=== PATIENT | female | born 1980 | race Caucasian/White ===

== ENCOUNTER → 2017-04-03 | Outpatient (CLI) | payer OTHER ==
[~2017-04-03] VITALS: Ht 162.6 cm; Wt 90.5 kg
[~2017-04-03] MED LIST: BENZOCAINE 20% ORAL SPR 60 ML CAN OROPHARYNG ONE; LIDOCAINE HCL 2% JELLY 5 ML SYRINGE TOPICAL ONE; PANT40TA3 PO; ZANT150T2 PO
[2017-04-03 07:06] VITALS: BP 99/66; PULSE 58; RESP 16; TEMP 97.9; O2SAT 100
== END ==
LOC: HEND 06:47
PROVIDERS: ATTEND Hospitalist
DX: K21.9 Gastro-esophageal reflux disease without esophagitis (principal)
CPT/HCPCS: 91010

== ENCOUNTER → 2017-05-26 | Outpatient (CLI) | payer OTHER ==
[~2017-05-26] MED LIST changes: -BENZOCAINE 20% ORAL SPR 60 ML CAN OROPHARYNG ONE; -LIDOCAINE HCL 2% JELLY 5 ML SYRINGE TOPICAL ONE
--- NOTE | 2017-05-26 08:18 | EKG ---
Date Performed: 05/26/2017 Time Performed: 07:54:36 PTAGE: 37 years EKG: Sinus rhythm with PAC(s) and PVCs. Borderline ECG Compared to prior electrocardiogram, Premature atrial and ventr icular contractions are present. PREVIOUS TRACING : 11/30/2015 15.59 DOCTOR: Jose Arambula Interpretating Date/Time 05/26/2017 08:16:24
--- NOTE | 2017-05-26 08:48 | RADRPT ---
EXAM DATE/TIME: 05/26/2017 08:16 [facility] COMPARISON: No previous studies available for comparison. INDICATIONS : Evaluate for pneumonia, pneumothorax, or communicable disease. Pre-op for gastric bypass on May. MEDICAL HISTORY : None. SURGICAL HISTORY : None. ENCOUNTER: Initial ACUITY: 1 day PAIN SCORE: 0/10 LOCATION: Bilateral chest FINDINGS: PA and lateral views of the chest demonstrate the lungs to be symmetrically aerated without evidence of mass, infiltrate or effusion. The cardiomediastinal contours are unremarkable. Osseous structure s are intact. CONCLUSION: No acute disease. Ruddy Sherwood MD on May 26, 2017 at 8:46 Board Certified Radiologist. This report was verified electronically.
== END ==
LOC: HCAV 07:44
PROVIDERS: ATTEND Surgery
DX: Z01.818 Encounter for other preprocedural examination (principal); I49.3 Ventricular premature depolarization; I49.1 Atrial premature depolarization
CPT/HCPCS: 71020; 93005

== ENCOUNTER 2017-06-13 11:12 | Inpatient (IN) | payer OTHER ==
[~2017-06-13] VITALS: Ht 162.6 cm; Wt 92.4 kg
[~2017-06-13 11:12] MED LIST changes: +CHOL1CAP24 PO; +CYAN1TAB24 PO; +MULTTAB67 PO
[2017-06-14] MEDS ORDERED: APREPITANT 40 MG CAP PO SCH (05:45)
[2017-06-14] MEDS ORDERED: SCOPOLAMINE 1.5 MG PATCH T-DERMAL SCH (05:45)
[2017-06-14] MEDS ORDERED: CHLORHEXIDINE GLUCONATE 2 % 1 PACK (2 CLOTHS) TOPICAL PRN (05:45)
[2017-06-14] MEDS ORDERED: SODIUM CHLORID 0.9% 500 ML IV PRN (05:45)
[2017-06-14] MEDS ORDERED: ACETAMINOPHEN 1000 MG/100 ML VIAL IV SCH (05:45)
[2017-06-14] MEDS ORDERED: INSULIN HUMAN REGULAR 1,000 UNITS/10 ML VIAL SQ PRN (05:45)
[2017-06-14] MEDS ORDERED: METOPROLOL TARTRATE 25 MG TAB PO PRN (05:45)
[2017-06-14] MEDS ORDERED: POVIDONE IODINE 5% (ANTISEPSIS KIT) 4 APPLICATIONS EACH NARE PRN (05:45)
[2017-06-14] MEDS ORDERED: ONDANSETRON HCL 4 MG/2 ML VIAL IV PUSH SCH (05:45)
[2017-06-14] MEDS ORDERED: LACTATED RINGER'S 1000 ML IV PRN (05:45)
[2017-06-14 06:10] VITALS: BP 121/71; PULSE 56; RESP 20; TEMP 98.1; O2SAT 100
[2017-06-14] MEDS ORDERED: GLYCOPYRROLATE 0.4 MG/2 ML VIAL ONE (07:02)
[2017-06-14] MEDS ORDERED: MIDAZOLAM HCL 2 MG/2 ML VIAL ONE (07:02)
[2017-06-14] MEDS ORDERED: DEXAMETHASONE SOD PHOS 4 MG/ML VIAL ONE (07:02)
[2017-06-14] MEDS ORDERED: fentaNYL CITRATE 250 MCG/5 ML AMP ONE (07:02)
[2017-06-14] MEDS ORDERED: FAMOTIDINE 20 MG/2 ML VIAL ONE (07:02)
[2017-06-14] MEDS ORDERED: ceFAZolin 2 GM PREMIX 50 ML ONE (07:12)
[2017-06-14] MEDS ORDERED: BUPIVACAINE/EPINEPHRINE 0.5% PF 10 ML VIAL ONE (07:12)
[2017-06-14] MEDS ORDERED: metroNIDAZOLE 500 MG INJ 100 ML IV ONE (07:22)
[2017-06-14] MEDS ORDERED: BUPIVACAINE/EPINEPHRINE 0.5% PF 10 ML VIAL INFIL ONE (08:08)
[2017-06-14] MEDS ORDERED: METHYLENE BLUE 100 MG/10 ML VIAL NG ONE (08:25)
[2017-06-14] MEDS: D5-1/2 NS + KCL 20 MEQ INJ 1,000 ML IV SCH ×4 (09:40→23:00)
[2017-06-14] MEDS ORDERED: ENALAPRILAT 1.25 MG/ML VIAL IV PUSH PRN (09:45)
[2017-06-14] MEDS ORDERED: SODIUM CHLORIDE 0.9% FLUSH 10 ML FLUSH IV FLUSH PRN (09:45)
[2017-06-14] MEDS ORDERED: diphenhydrAMINE HCL ELIXIR 12.5 MG/5 ML CUP PO PRN (09:45)
[2017-06-14] MEDS ORDERED: MORPHINE SULFATE 30 MG/30 ML PCA IV SCH (09:45)
[2017-06-14] MEDS ORDERED: ONDANSETRON HCL 4 MG/2 ML VIAL IV PRN (09:45)
[2017-06-14] MEDS ORDERED: diphenhydrAMINE HCL 50 MG/ML VIAL IV PRN (09:45)
[2017-06-14] MEDS ORDERED: ACETAMINOPHEN 325MG/HYDROcodone 7.5MG/15ML UDC PO PRN ×2 (09:45)
[2017-06-14] MEDS ORDERED: Post-op Orders (for Pharmacy) MISC OTHER ONE (09:45)
[2017-06-14] MEDS ORDERED: NALOXONE HCL 0.4 MG/ML AMP IV PRN (09:45)
[2017-06-14] MEDS ORDERED: *morphine SULFATE 8 MG/ML PERIprocedure ONLY ONE (10:08)
[2017-06-14] MEDS: METOCLOPRAMIDE HCL 10 MG/2 ML VIAL IV PUSH SCH ×2 (10:30→17:04)
[2017-06-14] MEDS ORDERED: DO NOT ADM ANY ANTICOAGULANT DRUGS PRN (11:15)
[2017-06-14] MEDS ORDERED: LACTATED RINGER'S 1000 ML INJ 1,000 ML IV ONE (12:00)
[2017-06-14] MEDS ORDERED: NEOSTIGMINE 3 MG/3 ML SYR IV ONE (12:00)
[2017-06-14] MEDS ORDERED: ePHEDrine/NS 25 MG/5 ML SYR IV ONE (12:00)
[2017-06-14] MEDS: RESP: ALBUTEROL 2.5 MG/3 ML NEB (SCH) INH ×2 (12:00→19:59)
[2017-06-14] MEDS ORDERED: PROPOFOL 200 MG/20 ML AMP IV ONE (12:00)
[2017-06-14] MEDS: ENOXAPARIN SODIUM 40 MG/0.4 ML SYRINGE SQ SCH (14:00)
[2017-06-14] MEDS: PCA - TOTAL MG MORPHINE DELIVERED PER SHIFT SCH ×2 (14:00→22:00)
--- NOTE | 2017-06-14 15:25 | MP ---
cc: SHERRIE BEAN DATE OF SURGERY: 06/14/2017 DATE OF : 1980 PREOPERATIVE DIAGNOSIS 1. Severe reflux unresponsive to medical management. 2. Obesity with a BMI of 35. POSTOPERATIVE DIAGNOSIS 1. Severe reflux unresponsive to medical management. 2. Obesity with a BMI of 35. PROCEDURE Laparoscopic Miale-en-Y gastric bypass. SURGEON Sherrie Bean BOX OFFICE MANAGER SURGEON Tim Boyer. Dr. Boyer's assistance was necessary for the procedure due to the complexity of the procedure. Dr. Boyer was necessary for exposure and manipulation during the procedure. Dr. Boyer assisted for the entire procedure. The assistant general manager provided by [employer] was utilized for camera operation. ANESTHESIA General endotracheal. ESTIMATED BLOOD LOSS Less than 10 cc. INDICATION This is a patient who had a laparoscopic vertical sleeve gastrectomy in the past. She was doing well, however, began experiencing reflux. She has been on multiple medical treatments for reflux, all unsuccessful. As a result she was brought in for conversion to Maile-en-Y gastric bypass to treat her reflux. FINDINGS Adhesions to the left lobe of the liver. Fatty liver. SPECIMENS None. COMPLICATIONS None. DETAILS OF PROCEDURE The patient was brought to the operating room and placed on the operating table in supine position. Bilateral sequential inflation device was placed on the lower extremities. General anesthesia was instituted. Antibiotics were initiated. The abdomen was prepped and draped sterilely. A point 18 cm distal to the xiphoid in the midline was anesthetized with 0.25% Marcaine with epinephrine. A skin incision was made. A 5 mm OptiView port was placed and under direct vision a pneumoperitoneum was created. Under direct vision a 5 mm left upper quadrant, 12 mm left upper quadrant, 12 mm right upper quadrant and 5 mm right upper quadrant port was placed. Prior to placement of all ports the skin and peritoneum were anesthetized with 0.25% Marcaine with epinephrine. The patient was placed in reverse Trendelenburg position, left side up. A Noreen-Flex retractor was placed and the left lobe of the liver was retracted. There were adhesions to the left lobe of the liver which were taken down sharply. The omentum along the staple line of the patient's sleeve gastrectomy was taken down using the Harmonic scalpel. Attention was then focused on the lesser curve. A distance 5 cm was identified. The lesser sac was entered in this region using blunt dissection. The stomach was then partitioned 5 cm distal to the GE junction using an [place] Flex stapler gold load. Attention was then focused on the lower abdomen. The omentum was lifted up and split down the middle to create a path for the Maile limb. The ligament of Treitz was identified. A point 40 cm distal was identified. The small bowel was divided in this region using an [place] Flex stapler white load reinforced with SeamGuard. The distal segment was brought up for a distance of 100 cm. Enterotomy was created in this region, enterotomy in the biliopancreatic limb and a [id number] stapled jejunojejunostomy created in the usual manner. The mesenteric defect of the jejunojejunostomy was closed with 2-0 Surgidac suture in a running manner. The Maile limb was then brought up to the new stomach. A gastrotomy was created in the new stomach, enterotomy in the Maile limb. Gastrojejunostomy created a stomal opening of 2 cm. An 18-Armenian OG tube was placed across the anastomosis. The defect was then closed in two layers of running 2-0 Vicryl. Prior to placement of the second layer methylene blue was instilled through the OG tube. There was no evidence of extravasation. Evicel was then placed over the gastrojejunostomy, jejunojejunostomy and all staple lines. A 10 flat MELYSSA was placed posterior to the gastrojejunostomy. The operative field was inspected. Hemostasis was present. The CO2 was released. All ports were removed. All skin incisions were closed with 4-0 Monocryl. The abdominal wall was cleaned and a sterile dressing placed. The patient was awakened and taken to the recovery room. MD CHARBEL Gutiérrez/MAYRA /9:47 AM /3:09 PM
[2017-06-14] MEDS: metroNIDAZOLE 500 MG INJ 100 ML IV SCH (17:05)
[2017-06-14 20:00] VITALS: BP 112/58; PULSE 68; RESP 17; TEMP 97.5; O2SAT 96
[2017-06-14] MEDS: SODIUM CHLORIDE 0.9% FLUSH 10 ML FLUSH IV FLUSH SCH (20:27)
[2017-06-14 20:28] VITALS: RESP 18
[2017-06-15] VITALS: BP 112/57; PULSE 62; RESP 18; TEMP 97; O2SAT 96
[2017-06-15] MEDS: METOCLOPRAMIDE HCL 10 MG/2 ML VIAL IV PUSH SCH ×2 (00:11→05:38)
[2017-06-15] MEDS: metroNIDAZOLE 500 MG INJ 100 ML IV SCH ×2 (00:12→08:05)
[2017-06-15] MEDS: RESP: ALBUTEROL 2.5 MG/3 ML NEB (SCH) INH ×4 (01:18→11:46)
[2017-06-15] MEDS: D5-1/2 NS + KCL 20 MEQ INJ 1,000 ML IV SCH ×3 (01:40→12:20)
[2017-06-15 04:00] VITALS: BP 110/60; PULSE 59; RESP 18; TEMP 98.1; O2SAT 96
[2017-06-15] MEDS: PCA - TOTAL MG MORPHINE DELIVERED PER SHIFT SCH ×2 (05:40→12:05)
[2017-06-15 05:41] VITALS: RESP 18
[2017-06-15 06:20] LABS: AUTOMATED NEUTROPHIL # 6.3 TH/MM3 (1.8-7.7); BASOPHIL % 0.2 % (0.0-2.0); EOSINOPHIL % 0.1 % (0.0-4.0); HEMATOCRIT 32.4 % (35.0-46.0); HEMO FLAGS DIFF FINAL; LYMPH % 23.8 % (9.0-44.0); LYMPHOCYTE # 2.2 TH/MM3 (1.0-4.8); MEAN CELL VOLUME 82.7 FL (80.0-100.0); MEAN CORPUSCULAR HEMOGLOBIN 27.6 PG (27.0-34.0); MEAN CORPUSCULAR HGB CONC 33.4 % (32.0-36.0); MONO % 7.1 % (0.0-8.0); NEUT % 68.8 % (16.0-70.0); PLATELET COUNT 163 TH/MM3 (150-450); RED BLOOD COUNT 3.92 MIL/MM3 (4.00-5.30); RED CELL DISTRIBUTION WIDTH 13.6 % (11.6-17.2); WHITE BLOOD COUNT 9.2 TH/MM3 (4.0-11.0)
[2017-06-15 06:42] LABS: BICARBONATE 27.7 MEQ/L (21.0-32.0); POTASSIUM 3.9 MEQ/L (3.5-5.1)
[2017-06-15 08:00] VITALS: BP 116/69; PULSE 60; RESP 20; TEMP 98.6; O2SAT 98
[2017-06-15] MEDS: SODIUM CHLORIDE 0.9% FLUSH 10 ML FLUSH IV FLUSH SCH (08:05)
[2017-06-15 08:12] VITALS: O2SAT 99
[2017-06-15] MEDS ORDERED: PANTOPRAZOLE SOD 40 MG DELAYED RELEASE TAB PO SCH (09:00)
[2017-06-15] MEDS ORDERED: METOCLOPRAMIDE HCL 10 MG/2 ML VIAL IV PUSH PRN (09:45)
--- NOTE | 2017-06-15 11:40 | HHI.PR ---
Subjective Subjective Notes Sitting up in bed No GI complaints Tolerating PO fluids Objective Vitals/I&O Vital Signs Date Time Temp Pulse Resp B/P Pulse Ox O2 Delivery O2 Flow Rate FiO2 06/15/17 08:12 99 06/15/17 08:00 98.6 60 20 116/69 06/14/17 14:00 Room Air 06/14/17 10:30 2 Labs Laboratory Tests Test 06/15/17 05:50 White Blood Count 9.2 Red Blood Count 3.92 Hemoglobin 10.8 Hematocrit 32.4 Mean Corpuscular Volume 82.7 Mean Corpuscular Hemoglobin 27.6 Mean Corpuscular Hemoglobin 33.4 Concent Red Cell Distribution Width 13.6 Platelet Count 163 Mean Platelet Volume 8.5 Neutrophils (%) (Auto) 68.8 Lymphocytes (%) (Auto) 23.8 Monocytes (%) (Auto) 7.1 Eosinophils (%) (Auto) 0.1 Basophils (%) (Auto) 0.2 Neutrophils # (Auto) 6.3 Lymphocytes # (Auto) 2.2 Monocytes # (Auto) 0.7 Eosinophils # (Auto) 0.0 Basophils # (Auto) 0.0 CBC Comment DIFF FINAL Differential Comment Sodium Level 140 Potassium Level 3.9 Chloride Level 108 Carbon Dioxide Level 27.7 Anion Gap 4 Blood Urea Nitrogen 8 Creatinine 0.61 Estimat Glomerular Filtration 110 Rate Random Glucose 120 Calcium Level 8.2 Magnesium Level 2.0 Cardiovascular: Regular Lungs: Clear Abdomen: Post-op tenderness Extremities: Perfused Wound Wound : Wound Location: Abdomen Appearance: Clean & Dry A/P Assessment and Plan 37yo F POD#1 laparoscopic conversion of VSG to RNY -Continue with frequent ambulation -Continue to increase fluids as tolerated The patient has been seen and examined. The chart and all resident notes have been reviewed. I agree that inpatient care is appropriate and that a two midnight stay is expected for the reasons documented in the resident history and physical. I have discussed this with the resident and certify the resident s order for inpatient admission. Discharge Planning D/C home today Baldemar Roman Jun 15, 2017 11:40 Ramos Bean MD Jun 17, 2017 18:04
[2017-06-15 12:00] VITALS: BP 121/59; PULSE 60; RESP 19; TEMP 98.3; O2SAT 100
[2017-06-15] MEDS: ENOXAPARIN SODIUM 40 MG/0.4 ML SYRINGE SQ SCH (12:05)
== END 2017-06-15 13:47 | disposition home or self-care (01) | DRG 328 ==
LOC: HSDI 06-14 05:23 → N07A 06-14 14:50
PROVIDERS: ADMIT Surgery; ATTEND Surgery
PROC: 0D164ZA Bypass Stomach to Jejunum, Percutaneous Endoscopic Approach (ICD-10-PCS; principal; 2017-06-14 07:22)
DX: K21.9 Gastro-esophageal reflux disease without esophagitis (principal); E66.9 Obesity, unspecified; Z68.35 Body mass index [BMI] 35.0-35.9, adult
CPT/HCPCS: 80048; 83735; 85025; 94150; 94640; J0131; J0690; J1100; J1650; J2250; J2270; J2405; J2710; J2765; J3010; J3480; J7120; J7613; J8501

== ENCOUNTER 2017-08-07 19:44 | Emergency (ER) | payer OTHER ==
[~2017-08-07 19:44] MED LIST changes: -CHOL1CAP24 PO; -CYAN1TAB24 PO; -MULTTAB67 PO; -ZANT150T2 PO
[2017-08-07 19:45] VITALS: BP 110/66; PULSE 70; RESP 16; TEMP 99.6; O2SAT 98
[2017-08-07 22:18] VITALS: BP 128/75; PULSE 60; RESP 16; O2SAT 99
[2017-08-07] MEDS ORDERED: SODIUM CHLOR 0.9% 1000 ML INJ 1,000 ML IV ONE (22:30)
[2017-08-07] MEDS ORDERED: ONDANSETRON HCL 4 MG/2 ML VIAL IV ONE (22:30)
--- NOTE | 2017-08-07 22:34 | PD ---
HPI Chief Complaint: GI Complaint Time Seen by Provider: 22:10 Travel History International Travel<30 days: No Contact w/Intl Traveler<30days: No Traveled to known affect area: No History of Present Illness HPI The patient is a 37 year old female who presents to the [facility] emergency department with a history of abdominal pain that began after eating 2 days ago. The patient reports that the pain recurs after eating any meal. She reports that over the last 24 hours she has also had nausea and vomiting. She reports that she has not been able to keep anything down. She reports that she' s had at least 6 episodes of vomiting. She reports that she feels lightheaded today. The patient's past medical history is, located by having a gastric sleeve for weight loss done in January 2016 that required a revision related to severe reflux symptoms. She reports that on June 14, 2017 she underwent a Malie-en-Y gastric bypass. She reports that since last year she's had a 150 pound weight loss. The patient denies having any reflux symptoms recently. She reports that earlier today she did have some chest pressure and a sensation of difficulty taking a deep breath. She reports that that has resolved. The patient reports that she has had some chills. The patient reports that her urine has appeared darker and had a stronger odor. She denies any dysuria, urinary frequency, or urinary urgency. On review of systems otherwise, the patient denies any known recent fevers cough, congestion, neck pain, diarrhea, or neurologic symptoms. The patient reports that she last moved her bowels yesterday. She denies having any blood in her stool or black or tarry stools. LMP: June. [facility] Past Medical History Narrative Medical The patient's past medical history is significant for obesity status post 150 pound weight loss after gastric bypass, history of acid reflux, history of polycystic ovarian syndrome, migraine headaches, anxiety disorder, history of chronic low back pain, obstructive sleep apnea, prediabetes, vitamin D deficiency Anxiety: No Depression: No Cancer: No Cardiovascular Problems: No Diabetes: No Endocrine: No Gastrointestinal Disorders: Yes (gerd) GERD: Yes Genitourinary: No Hepatitis: No Hiatal Hernia: Yes (possible) Immune Disorder: No Musculoskeletal: No Neurologic: No Psychiatric: No Reproductive: No Respiratory: No Immunizations Current: Yes Thyroid Disease: No ?: Not LMP: 07/28/17 Past Surgical History Narrative Surgical The patient's past surgical history is significant for , cholecystectomy, hand surgery, gastric sleeve, Maile-en-Y gastric bypass Abdominal Surgery: Yes (gastric sleeve) AICD: No Body Medical Devices: GASTRIC SLEEVE Cardiac Surgery: No Ear Surgery: No Endocrine Surgery: No Eye Surgery: No Genitourinary Surgery: No Gynecologic Surgery: Yes (c section) Joint Replacement: No Oral Surgery: No Pacemaker: No Thoracic Surgery: No Other Surgery: Yes Social History Alcohol Use: No Tobacco Use: No Substance Use: No Allergies-Medications (Allergen,Severity, Reaction): Coded Allergies: No Known Allergies (Unverified , 08/07/17) Reported Meds & Prescriptions Reported Meds & Active Scripts Active Zofran Odt (Ondansetron Odt) 4 Mg Tab 4 Mg SL Q6HR PRN Reported Pantoprazole (Pantoprazole Sodium) 40 Mg Tab 40 Mg PO DAILY Review of Systems Except as stated in HPI: all other systems reviewed are Neg General / Constitutional: Positive: Chills, No: Fever Eyes: No: Visual changes HENT: No: Headaches, Congestion Cardiovascular: Positive: Chest Pain or Discomfort, Dyspnea on exertion Respiratory: Positive: Shortness of Breath, No: Cough Gastrointestinal: Positive: Nausea, Vomiting, Abdominal Pain, No: Diarrhea, Hematemesis, Hematochezia, Changes in Bowel Habits, Indigestion, Loss of Appetite Genitourinary: No: Dysuria Musculoskeletal: No: Pain Skin: No Rash Neurologic: No: Weakness Psychiatric: No: Depression Endocrine: No: Polydipsia Hematologic/Lymphatic: No: Easy Bruising Physical Exam Narrative General: The patient is a well-developed well-nourished female in no acute distress. Head and Neck exam: Head is normocephalic atraumatic. Eyes: EOMI, pupils are equal round and reactive to light. Nose: Midline septum with pink mucous membranes Mouth: Dentition unremarkable. Moist mucus membranes. Posterior oropharynx is not erythematous. No tonsillar hypertrophy. Uvula midline. Airway patent. Neck: No palpable lymphadenopathy. No nuchal rigidity. No thyromegaly. Cardiovascular: Regular rate and rhythm without murmurs, gallops, or rubs. Lungs: Clear to auscultation bilaterally. No wheezes, rhonchi, or rales. Abdomen: Soft, with reported tenderness on palpation overlying the suprapubic area although she reports that the abdominal pain after eating is in the midepigastric area, no other tenderness on palpation of the other quadrants of the abdomen. No guarding, rebound, or rigidity. Normal bowel sounds are audible. No tenderness on palpation of McBurney's point. Negative Spencer's sign. Extremities: No clubbing, cyanosis, or edema. 2+ pulses in all 4 extremities. No calf tenderness on palpation. Back: No spinous process tenderness to palpation. No costovertebral angle tenderness to palpation. Neurologic Exam: Grossly nonfocal. Skin Exam: No rash noted. Intact skin that is warm and dry. Data Data Last Documented VS Vital Signs Date Time Temp Pulse Resp B/P (MAP) Pulse Ox O2 Delivery O2 Flow Rate FiO2 08/08/17 02:51 08/07/17 22:46 16 99 Room Air 08/07/17 22:18 60 08/07/17 19:45 99.6 Orders Orders Electrocardiogram (08/07/17 22:22) Complete Blood Count With Diff (08/07/17 22:22) Comprehensive Metabolic Panel (08/07/17 22:22) Creatine Kinase (Cpk) (08/07/17 22:22) Ckmb (Isoenzyme) Profile (08/07/17 22:22) Troponin I (08/07/17 22:22) B-Type Natriuretic Peptide (08/07/17 22:22) Prothrombin Time / Inr (Pt) (08/07/17 22:22) Act Partial Throm Time (Ptt) (08/07/17 22:22) Lipase (08/07/17 22:22) Urinalysis - C+S If Indicated (08/07/17 22:22) D-Dimer (08/07/17 22:22) Magnesium (Mg) (08/07/17 22:22) Chest, Single Ap (08/07/17 22:22) Ct Abd/Pel W Iv Contrast(Rout) (08/07/17 22:22) Iv Access Insert/Monitor (08/07/17 22:22) Ecg Monitoring (08/07/17 22:22) Oximetry (08/07/17 22:22) Ed Urine Pregnancytest Poc (08/07/17 22:22) Sodium Chlor 0.9% 1000 Ml Inj (Ns 1000 M (08/07/17 22:30) Ondansetron Inj (Zofran Inj) (08/07/17 22:30) Ct Pulmonary Angiogram (08/07/17 23:54) Sodium Chlorid 0.9% 500 Ml Inj (Ns 500 M (08/08/17 00:45) Iohexol 350 Inj (Omnipaque 350 Inj) (08/08/17 00:55) Labs Laboratory Tests Test 08/07/17 22:30 08/07/17 23:00 White Blood Count 3.3 TH/MM3 Red Blood Count 4.60 MIL/MM3 Hemoglobin 12.6 GM/DL Hematocrit 38.7 % Mean Corpuscular Volume 84.1 FL Mean Corpuscular Hemoglobin 27.4 PG Mean Corpuscular Hemoglobin Concent 32.6 % Red Cell Distribution Width 15.5 % Platelet Count 152 TH/MM3 Mean Platelet Volume 8.7 FL Neutrophils (%) (Auto) 50.1 % Lymphocytes (%) (Auto) 39.5 % Monocytes (%) (Auto) 9.5 % Eosinophils (%) (Auto) 0.8 % Basophils (%) (Auto) 0.1 % Neutrophils # (Auto) 1.6 TH/MM3 Lymphocytes # (Auto) 1.3 TH/MM3 Monocytes # (Auto) 0.3 TH/MM3 Eosinophils # (Auto) 0.0 TH/MM3 Basophils # (Auto) 0.0 TH/MM3 CBC Comment DIFF FINAL Differential Comment Prothrombin Time 12.0 SEC Prothromb Time International Ratio 1.1 RATIO Activated Partial Thromboplast Time 27.4 SEC D-Dimer Quantitative (PE/DVT) 1.67 MG/L FEU Urine Color YELLOW Urine Turbidity HAZY Urine pH 6.0 Urine Specific Morrow 1.025 Urine Protein TRACE mg/dL Urine Glucose (UA) NEG mg/dL Urine Ketones 40 mg/dL Urine Occult Blood NEG Urine Nitrite NEG Urine Bilirubin NEG Urine Urobilinogen 4.0 MG/DL Urine Leukocyte Esterase NEG Urine RBC 2 /hpf Urine WBC 2 /hpf Urine Squamous Epithelial Cells 15 /hpf Urine Bacteria RARE /hpf Urine Mucus FEW /lpf Microscopic Urinalysis Comment CULT NOT INDICATED B-Type Natriuretic Peptide 12 PG/ML Blood Urea Nitrogen 9 MG/DL Creatinine 0.46 MG/DL Random Glucose 73 MG/DL Total Protein 5.6 GM/DL Albumin 2.9 GM/DL Calcium Level 7.8 MG/DL Magnesium Level 1.8 MG/DL Alkaline Phosphatase 175 U/L Aspartate Amino Transf (AST/SGOT) 338 U/L Alanine Aminotransferase (ALT/SGPT) 418 U/L Total Bilirubin 0.3 MG/DL Sodium Level 139 MEQ/L Potassium Level 3.6 MEQ/L Chloride Level 106 MEQ/L Carbon Dioxide Level 23.8 MEQ/L Anion Gap 9 MEQ/L Estimat Glomerular Filtration Rate 152 ML/MIN Total Creatine Kinase 62 U/L Troponin I LESS THAN 0.02 NG/ML Lipase 113 U/L [facility] Medical Decision Making Medical Screen Exam Complete: Yes Emergency Medical Condition: Yes Medical Record Reviewed: Yes Interpretation(s) Last Impressions CT Angiography 08/07/17 [id number] Signed Impressions: Service Date/Time: Tuesday, August 08, 2017 00:47 - CONCLUSION: No evidence of pulmonary embolism Ruddy Sherwood MD Chest X-Ray 08/07/172 Signed Impressions: Service Date/Time: Monday, August 07, 2017 22:25 - CONCLUSION: 1. No acute cardiopulmonary disease. Cesar Mckay MD Differential Diagnosis Pulmonary embolism, versus acute coronary syndrome, versus acid reflux, versus gastritis, versus viral syndrome, versus pancreatitis, versus bowel obstruction , versus ileus Narrative Course During the course of the patients emergency department visit, the patients history, examination, and differential diagnosis were reviewed with the patient. The patient had IV access obtained and blood work sent for analysis. The patient was placed on a laserist with oximetry and blood pressure monitoring. An ECG was done on arrival. The patient's ECG reveals a heart rate of 61, no acute ST segment elevation, QRS duration is 88 ms, QTC 398 ms, T waves are inverted in V1. The patient was initially provided normal saline 1 L IV fluid bolus, Zofran 4 mg IV. The patients laboratory studies were reviewed and remarkable for a white count of 3.3, hemoglobin 12.6, platelets 152 with 9.5 monocytes, CMP is remarkable for creatinine of 0.46, glucose 73, AST 338, ALT 418, alkaline phosphatase 175 with a total bilirubin of 0.3. CPK is 62, troponin I is less than 0.02, BNP is 12, lipase 113, d-dimer elevated at 1.67, CTA to rule out PE was ordered. PT 12 , PTT 27.4. Urinalysis shows hazy urine, 40 ketones, 4 urobilinogen, rare bacteria. Radiology studies were reviewed and remarkable for a chest x-ray that shows no evidence of acute cardiopulmonary disease, CT a to rule out PE shows no evidence of pulmonary embolism. CT scan of the abdomen and pelvis shows Multiple liver masses are likely cavernous hemangiomata. This could be confirmed on an elective basis with contrast MRI if that has not already been accomplished. I spoke to Dr. Talamantes at approximately 2:05 AM regarding the patient's laboratory findings, elevated LFTs and on CAT scan her multiple liver masses with suspected cavernous hemangioma on a as the cause of these liver masses. He did agree to close follow-up of her as an outpatient. The patient will be given a prescription for nausea medication. The patient will be given a prescription for an outpatient contrast MRI of the liver to further evaluate these liver masses. The patient is resting comfortably and feels better, is alert and in no distress. The patients results and examination findings were discussed with the patient. The repeat examination is unremarkable and benign. The history, exam, diagnostic testing, and current condition do not suggest any significant pathology to warrant further testing, continued ED treatment, admission, or surgical evaluation at this point. The vital signs have been stable. The patient does not have uncontrollable pain, intractable vomiting, or other significant symptoms. The patient's condition is stable and appropriate for discharge. The patient will pursue further outpatient evaluation with a primary care physician or other designated or consulting physician as indicated in the discharge instructions. The patient expressed understanding and was agreeable with this plan. Physician Communication Physician Communication I spoke to Dr. Talamantes at approximately 2:05 AM regarding the patient's laboratory findings, elevated LFTs and on CAT scan her multiple liver masses with suspected cavernous hemangioma on a as the cause of these liver masses. He did agree to close follow-up of her as an outpatient. The patient will be given a prescription for nausea medication. The patient will be given a prescription for an outpatient contrast MRI of the liver to further evaluate these liver masses. Diagnosis Primary Impression: Abdominal pain Qualified Codes: R10.13 - Epigastric pain Additional Impressions: Elevated liver enzymes Liver masses Referrals: Ramos Bean MD 1 day Patient Instructions: Abdominal Pain (ED), Acute Nausea and Vomiting (ED), General Instructions Additional Instructions: The patient was given an outpatient lab slip for an MRI with contrast of the liver, and repeat LFTs in 1 week. Med/Other Pt SpecificInfo: Prescription(s) given Scripts Ondansetron Odt (Zofran Odt) 4 Mg Tab 4 MG SL Q6HR Y for Nausea/Vomiting, #7 TAB 0 Refills Prov: Hermila Rosen MD 08/08/17 Disposition: 01 DISCHARGE HOME Condition: Stable Hermila Rosen MD Aug 07, 2017 22:34
--- NOTE | 2017-08-07 22:39 | RADRPT ---
EXAM DATE/TIME: 08/07/2017 22:25 [facility] COMPARISON: CHEST SINGLE AP, February 03, 2016, 9:06. INDICATIONS : Chest pain MEDICAL HISTORY : None. SURGICAL HISTORY : None. ENCOUNTER: Initial ACUITY: 1 day PAIN SCORE: 0/10 LOCATION: chest FINDINGS: A single view of the chest demonstrates the lungs to be symmetrically aerated without evidence of mas s, infiltrate or effusion. The cardiomediastinal contours are unremarkable. Osseous structures are intact. CONCLUSION: 1. No acute cardiopulmonary disease. Cesar Mckay MD on August 07, 2017 at 22:37 Board Certified Radiologist. This report was verified electronically.
[2017-08-07 22:45] LABS: AUTOMATED NEUTROPHIL # 1.6 TH/MM3 (1.8-7.7); BASOPHIL % 0.1 % (0.0-2.0); EOSINOPHIL % 0.8 % (0.0-4.0); HEMATOCRIT 38.7 % (35.0-46.0); HEMO FLAGS DIFF FINAL; LYMPH % 39.5 % (9.0-44.0); LYMPHOCYTE # 1.3 TH/MM3 (1.0-4.8); MEAN CELL VOLUME 84.1 FL (80.0-100.0); MEAN CORPUSCULAR HEMOGLOBIN 27.4 PG (27.0-34.0); MEAN CORPUSCULAR HGB CONC 32.6 % (32.0-36.0); MONO % 9.5 % (0.0-8.0); NEUT % 50.1 % (16.0-70.0); PLATELET COUNT 152 TH/MM3 (150-450); RED CELL DISTRIBUTION WIDTH 15.5 % (11.6-17.2); WHITE BLOOD COUNT 3.3 TH/MM3 (4.0-11.0)
[2017-08-07 22:46] VITALS: RESP 16; O2SAT 99
[2017-08-07 22:48] LABS: BACTERIA, URINE RARE /hpf; BLOOD, URINE NEG (NEG); COMMENT (UR) CULT NOT INDICATED; CULTURE IF INDICATED CULT NOT INDICATED; GLUCOSE,URINE NEG (NEG); KETONE, URINE 40 mg/dL (NEG); MUCUS URINE FEW /lpf (OCC); NITRITE,URINE NEG (NEG); SQUAMOUS EPITHELIAL CELL URINE 15 /hpf (0-5); URINE COLOR YELLOW (YELLW/STRAW)
[2017-08-07 23:11] LABS: APTT (PATIENT) 27.4 SEC (24.3-30.1); INTERNATIONAL NORMALIZED RATIO 1.1 RATIO
[2017-08-07 23:26] LABS: ANION GAP 9 MEQ/L (5-15); AST (GOT) 338 U/L (15-37); BICARBONATE 23.8 MEQ/L (21.0-32.0); BLOOD UREA NITROGEN 9 MG/DL (7-18); CHLORIDE 106 MEQ/L (98-107); GLOMERULAR FILTRATION RATE 152 ML/MIN (>89); MAGNESIUM 1.8 MG/DL (1.5-2.5); POTASSIUM 3.6 MEQ/L (3.5-5.1); SODIUM (NA) 139 MEQ/L (136-145)
[2017-08-07 23:27] LABS: ALT (GPT) 418 U/L (10-53)
[2017-08-07 23:31] LABS: ALKALINE PHOSPHATASE 175 U/L (45-117); CREATINE KINASE 62 U/L (26-192); TOTAL BILIRUBIN ADULT 0.3 MG/DL (0.2-1.0)
[2017-08-08] MEDS ORDERED: SODIUM CHLORID 0.9% 500 ML INJ 500 ML IV ONE (00:45)
[2017-08-08] MEDS ORDERED: IOHEXOL 350 MG/ML 10 ML VIAL (for RAD DIAG) IVCONTRAST ONE (00:55)
--- NOTE | 2017-08-08 01:34 | RADRPT ---
EXAM DATE/TIME: 08/08/2017 00:47 [facility] COMPARISON: No previous studies available for comparison. INDICATIONS : Chest discomfort. IV CONTRAST: 95 cc Omnipaque 350 (iohexol) IV ; Cumulative dose for multiple exams. RADIATION DOSE: 23.38 CTDIvol (mGy) MEDICAL HISTORY : Hernia, hiatal. Gastroesophageal reflux disease. SURGICAL HISTORY : section. Gastric sleeve. ENCOUNTER: Initial ACUITY: 1 day PAIN SCALE: 5/10 LOCATION: Left chest TECHNIQUE: Volumetric scanning of the chest was performed using a pulmonary embolism protocol MIP images were re constructed. Using automated exposure control and adjustment of the mA and/or kV according to patien t size, radiation dose was kept as low as reasonably achievable to obtain optimal diagnostic quality images. DICOM format image data is available electronically for review and comparison. Follow-up recommendations for detected pulmonary nodules are based at a minimum on nodule size and pa tient risk factors according to Fleischner Society Guidelines. FINDINGS: PULMONARY ARTERIES: No filling defects are seen in the pulmonary arteries through the segmental level. LUNGS: There is no consolidation or pneumothorax . No concerning pulmonary nodule is visualized. PLEURAE: There is no pleural thickening or pleural effusion. MEDIASTINUM: There is good visualization of the great vessels of the middle mediastinum. No evidence of mediastin al or hilar adenopathy/mass. MUSCULOSKELETAL: Within normal limits for patient age. MISCELLANEOUS: The visualized upper abdominal organs demonstrate no acute abnormality. CONCLUSION: No evidence of pulmonary embolism Ruddy Sherwood MD on August 08, 2017 at 1:30 Board Certified Radiologist. This report was verified electronically.
--- NOTE | 2017-08-08 01:40 | RADRPT ---
EXAM DATE/TIME: 08/08/2017 00:47 [place] COMPARISON: No previous studies available for comparison. INDICATIONS : Epigastric pain with vomiting. IV CONTRAST: 95 cc Omnipaque 350 (iohexol) IV ORAL CONTRAST: No oral contrast ingested. RADIATION DOSE: 11.91 CTDIvol (mGy) MEDICAL HISTORY : Gastroesophageal reflux disease. Hernia, hiatal. SURGICAL HISTORY : section. Gastric sleeve. ENCOUNTER: Initial ACUITY: 1 day PAIN SCALE: 5/10 LOCATION: Bilateral upper quadrant TECHNIQUE: Volumetric scanning of the abdomen and pelvis was performed. Using automated exposure control and ad justment of the mA and/or kV according to patient size, radiation dose was kept as low as reasonably achievable to obtain optimal diagnostic quality images. DICOM format image data is available electro nically for review and comparison. FINDINGS: LOWER LUNGS: The visualized lower lungs are clear. LIVER: There are multiple benign appearing liver masses which are likely cavernous hemangiomata. There are n o particularly suspicious liver mass is identified. No evidence of biliary ductal dilatation gallblad yue surgically absent. SPLEEN: Normal size without lesion. PANCREAS: Within normal limits. KIDNEYS: Normal in size and shape. There is no mass, stone or hydronephrosis. ADRENAL GLANDS: Within normal limits. VASCULAR: There is no aortic aneurysm. BOWEL/MESENTERY: Previous gastric bypass surgery. No abnormal dilatation of bowel. No abnormal wall thickening or foca l inflammatory changes. ABDOMINAL WALL: Within normal limits. RETROPERITONEUM: There is no lymphadenopathy. BLADDER: No wall thickening or mass. REPRODUCTIVE: Likely uterine fibroids. No evidence of pelvic mass or free fluid INGUINAL: There is no lymphadenopathy or hernia. MUSCULOSKELETAL: Within normal limits for patient age. 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 This could be confirmed on an elective basis with contrast MRI if that has not already been accomplished. No definite acute CT findings in the abdomen or pelvis. Ruddy Sherwood MD on August 08, 2017 at 1:34 Board Certified Radiologist. This report was verified electronically.
[2017-08-08] MEDS ORDERED: ZOFR4TAB3 SL (02:08)
--- NOTE | 2017-08-08 10:10 | EKG ---
Date Performed: 08/07/2017 Time Performed: 20:33:07 PTAGE: 37 years EKG: Sinus rhythm NORMAL ECG PREVIOUS TRACING : 05/26/2017 07.54 Compared to prior tracing no significant change DOCTOR: Cesar Pereira Interpretating Date/Time 08/08/2017 10:07:00
== END 2017-08-08 03:00 | disposition home or self-care (01) ==
LOC: NEPE 19:44
DX: R10.13 Epigastric pain (principal); R74.8 Abnormal levels of other serum enzymes; R16.0 Hepatomegaly, not elsewhere classified; R11.2 Nausea with vomiting, unspecified; R06.02 Shortness of breath
CPT/HCPCS: 71010; 71275; 74177; 80053; 81001; 82550; 83690; 83735; 83880; 84484; 84703; 85025; 85379; 85610; 85730; 93005; 96374; 99285; J2405; J7030; J7040; Q9967

== ENCOUNTER → 2017-09-12 | Outpatient (CLI) | payer OTHER ==
[~2017-09-12] VITALS: Ht 162.6 cm; Wt 82.4 kg
[~2017-09-12] MED LIST changes: +CHLORHEXIDINE GLUCONATE 2 % 1 PACK (2 CLOTHS) TOPICAL PRN; +INSULIN HUMAN REGULAR 1,000 UNITS/10 ML VIAL SQ PRN; +LACTATED RINGER'S 1000 ML IV PRN; +LIDOCAINE HCL 1% PF 5 ML AMPULE OTHER ONE; +METOPROLOL TARTRATE 25 MG TAB PO PRN; +POVIDONE IODINE 5% (ANTISEPSIS KIT) 4 APPLICATIONS EACH NARE PRN; +PROPOFOL 200 MG/20 ML AMP IV ONE; +SODIUM CHLORID 0.9% 500 ML IV PRN; +ZANT150T2 PO; +ZOFR4TAB3 SL
[2017-09-12 13:32] VITALS: TEMP 98.2
--- NOTE | 2017-09-12 14:11 | GIPROC ---
[facility] [address] [facility]. [facility] [address] [address], [address] EGD PROCEDURE REPORT EXAM DATE: 09/12/2017 PATIENT NAME: Farnaz Celis MR #: [id number] BIRTHDATE: 1980 ATTENDING: Tim Boyer MD ORDER #: [id number] INDEPENDENT LIVING ADVISOR: Erna Bautista STATUS: outpatient INDICATIONS: The patient is a 37 yr old female here for an EGD due to nausea, vomiting, epigastric pain, hx of sleeve converted to RYGB PROCEDURE PERFORMED: EGD w/ balloon dilation of esophagus MEDICATIONS: Per Anesthesia and None. TOPICAL ANESTHETIC: none CONSENT: The patient understands the risks and benefits of the procedure and understands that these risks include, but are not limited to: sedation, allergic reaction, infection, perforation and/or bleeding. Alternative means of evaluation and treatment include, among others: physical exam, x-rays, and/or surgical intervention. The patient elects to proceed with this endoscopic procedure. medical equipment was checked for proper function. Hand hygiene and appropriate measures for infection prevention was taken. After the risks, benefits and alternatives of the procedure were thoroughly explained, Informed consent was verified, confirmed and timeout was successfully executed by the treatment team. The patient was anesthetized with anesthesia and the Pentax EG-[id number] endoscope was introduced through the mouth and advanced to the anastomosis. Retroflexion was not performed The gastroscope was then slowly withdrawn and removed. ESOPHAGUS: An anastomosis was found at the esophago-jejunal anastamosis. Using a TTS-balloon the stricture was dilated up to 20mm. The balloon was held inflated for 30 seconds. Following this dilation, there was a small amount of heme. ADVERSE EVENTS: There were no complications. IMPRESSIONS: 1. Anastomosis at the gastro-jejunal anastamosis; Using a TTS-balloon the stricture was dilated up to 20mm; The balloon was held inflated for 30 seconds x2; Following this dilation, there was a small amount of heme 2. Retroflexion was not performed RECOMMENDATIONS: 1. Continue PPI 2. Avoid NSAIDS PATIENT CONDITION: fair DISPOSITION: Home REPEAT EXAM: NONE Tim Boyer MD eSigned: Tim Boyer MD 09/12/2017 2:10 PM cc: lyle Boyer MD PATIENT NAME: Farnaz Celis MR#: [id number]
[2017-09-12 14:50] VITALS: BP 95/55; PULSE 52; RESP 20; O2SAT 99
== END ==
LOC: HSDC 12:43 → EDSTATUS 14:00
PROVIDERS: ATTEND Surgery
DX: K95.89 Other complications of other bariatric procedure (principal); R12 Heartburn; R11.2 Nausea with vomiting, unspecified; Z98.84 Bariatric surgery status
CPT/HCPCS: 00740; 43245; C1726; J7120